=== PATIENT | male | born 1940 | race Caucasian/White ===

== ENCOUNTER 2016-12-11 09:11 | Emergency (ER) | payer OTHER ==
[2016-12-27] MEDS ORDERED: TOPROL XL25 MG PO (08:16)
[2016-12-27] MEDS ORDERED: PRAVACHOL40 MG PO (08:16)
[2016-12-27] MEDS ORDERED: ASPIRIN EC81 MG PO (08:16)
[2016-12-27] MEDS ORDERED: JANUVIA100 MG PO (08:16)
[2016-12-27] MEDS ORDERED: GLUCOPHAGE1000 MG PO (08:17)
[2016-12-27] MEDS ORDERED: VASOTEC10 MG PO (08:17)
[2016-12-27] MEDS ORDERED: GLUCOTROL XL5 MG PO (08:18)
== END 2016-12-11 14:03 | disposition critical access hospital (66) ==
LOC: ER 09:11
DX: K80.00 Calculus of gallbladder with acute cholecystitis without obstruction (principal); E11.9 Type 2 diabetes mellitus without complications; E78.5 Hyperlipidemia, unspecified; I10 Essential (primary) hypertension; Z79.899 Other long term (current) drug therapy; Z79.84 Long term (current) use of oral hypoglycemic drugs
CPT/HCPCS: 36415; 96361; 96365; 96375

== ENCOUNTER 2016-12-11 09:11 | Inpatient (IN) | payer OTHER ==
--- NOTE | 2016-12-12 12:29 | NUR ---
1100- PATIENT TAKEN TO OR PER HOSPITAL BED PER OR NURSING STAFF FOR CHOLECYSTECTOMY. NO S/S OF DISTRESS, NO COMPLAINTS. FAMILY AT BEDSIDE.
--- NOTE | 2016-12-12 20:16 | NUR ---
at 1545 Patient arrived to ICU from OR. Patient obtunded with no response per sternal rub. SPO2 77 on 2L per N/C. Patient changed to 10L per simple mask which increased SPO2 ot 96%. ABG drawn just prior to change to simple mask with results as listed. Dr. Hernandez here and aware. He wanted to attempt to try BiPaP but decision was made to intubate due to high CO2. At 1640 patient was intubated with 9.0 ETT/22-23 at teeth, AC 18, TV 550, Peep 5, FIO2 50%. Tube secured, CXR obtained. Labs obtained as well and as noted. AT 1645 patient began having hypotension 77/40. Dr. Hernandez informed. 500 cc bolus given as noted. Additional boluses given as noted. Minimal response. Levophed started at 10 mcg/min as noted. BP as noted. Albumin given as ordered per Dr. Pierre when she called. Patient continued to have hypotension with IVF infusing at high rate as well as Levophed continuing. Dr. Pierre also ordered consult with Dr. Chinchilla due to ectopy. Labs noted. Restraints initiated at 1800 due to patient moving around a bit. Morphine given as well for pain as noted. Discussed with Dr. Hernandez need for sedation. Diprivan drip ordered. Dr. Pierre said not to start until BP improved more and patient was moving more. Diprivan started at 1900. Dr. Pierre also wanted vent changes made based on ABG result changed to AC 18, TV 600, Peep 5, FIO2 50 % and to recheck ABG at 1930. In addition, Dr. hCinchilla her at 1830 assessing patient. He performed an ECHO and it is as noted. as noted.
--- NOTE | 2016-12-14 15:09 | NUR ---
1451-DR. GRIMM AND DR. JENKINS HERE TO SEE AND ASSESS PT AT THIS TIME. UPDATED ON PT CONDITION. PT DOING WELL SINCE EXTUBATED THIS AM. TO HAVE SPEECH EVALUATION IN AM AND PT AND OT TO CONSULT TODAY. DR. JENKINS D/C'D NG AT THIS TIME. N/O'S NOTED. WILL MONITOR
--- NOTE | 2016-12-14 17:42 | NUR ---
1605-DR. GRIMM NOTIFIED OF B N/O'S TO D/C INSULIN GTT AT THIS TIME AND INITIATE WT BASED S/S INSULIN AT LOWEST DOSE. PT STABLE WITH NO PROBLEMS NOTED AT THIS TIME
--- NOTE | 2016-12-19 08:58 | NUR ---
0840: PT TRANSPORTED TO [facility] VIA [facility]. SCHEDULING AT [facility].
--- NOTE | 2016-12-19 14:55 | NUR ---
1342: REPORT RECEIVED FROM BLAYNE PEPE AT [facility].
--- NOTE | 2016-12-19 14:55 | NUR ---
0945: REPORT GIVEN TO BLAYNE AT [facility].
--- NOTE | 2016-12-19 15:59 | NUR ---
1555: PT BACK ON FLOOR FROM [facility]. PT ALERT AND ORIENTED X3, VSS AND NO DISTRESS NOTED OR VERBALIZED. WILL CONTINUE TO MONITOR
--- NOTE | 2016-12-20 12:54 | NUR ---
1235: REPORT GIVEN TO JASMINE MENENDEZ RN ON [facility].
--- NOTE | 2016-12-20 13:04 | NUR ---
1300: PT TRANSPORTED TO [facility] VIA WHEELCHAIR. PT ALERT AND ORIENTED X3, VSS AND NO DISTRESS NOTED OR VERBALIZED.
--- NOTE | 2016-12-20 13:18 | NUR ---
1300: PT FROM ICU TO ROOM 311 VIA W/C ON ROOM AIR. PT STABLE. ASSISTED INTO RECLINER. AGREE WITH PREVIOUS NURSE ASSESSMENT. NO COMPLAINTS NOTED FROM PT.
[2016-12-27] MEDS ORDERED: TOPROL XL25 MG PO (08:16)
[2016-12-27] MEDS ORDERED: JANUVIA100 MG PO (08:16)
[2016-12-27] MEDS ORDERED: ASPIRIN EC81 MG PO (08:16)
[2016-12-27] MEDS ORDERED: PRAVACHOL40 MG PO (08:16)
[2016-12-27] MEDS ORDERED: GLUCOPHAGE1000 MG PO (08:17)
[2016-12-27] MEDS ORDERED: VASOTEC10 MG PO (08:17)
[2016-12-27] MEDS ORDERED: GLUCOTROL XL5 MG PO (08:18)
== END 2016-12-26 16:04 | disposition home health service (06) | DRG 417 ==
LOC: ER 09:11 → MED 14:04 → ICU 14:04 → MED 15:49 → ICU 12-12 16:04 → MED 12-20 13:05
PROVIDERS: ADMIT Internal Medicine
PROC: 0FT44ZZ Resection of Gallbladder, Percutaneous Endoscopic Approach (ICD-10-PCS; principal; 2016-12-12)
PROC: BF13YZZ Fluoroscopy of Gallbladder and Bile Ducts using Other Contrast (ICD-10-PCS; 2016-12-12)
PROC: 5A1945Z Respiratory Ventilation, 24-96 Consecutive Hours (ICD-10-PCS; 2016-12-12)
PROC: 0BH17EZ Insertion of Endotracheal Airway into Trachea, Via Natural or Artificial Opening (ICD-10-PCS; 2016-12-12)
PROC: 02HV33Z Insertion of Infusion Device into Superior Vena Cava, Percutaneous Approach (ICD-10-PCS; 2016-12-13)
PROC: B548ZZA Ultrasonography of Superior Vena Cava, Guidance (ICD-10-PCS; 2016-12-13)
DX: K80.00 Calculus of gallbladder with acute cholecystitis without obstruction (principal); J95.821 Acute postprocedural respiratory failure; T81.12XA Postprocedural septic shock, initial encounter; N17.0 Acute kidney failure with tubular necrosis; T81.4XXA Infection following a procedure, initial encounter; K91.873 Postprocedural seroma of a digestive system organ or structure following other procedure; D62 Acute posthemorrhagic anemia; B96.20 Unspecified Escherichia coli [E. coli] as the cause of diseases classified elsewhere; H35.30 Unspecified macular degeneration; Z79.84 Long term (current) use of oral hypoglycemic drugs; Z79.82 Long term (current) use of aspirin; Z79.899 Other long term (current) drug therapy; Z80.9 Family history of malignant neoplasm, unspecified; Z82.3 Family history of stroke; R33.9 Retention of urine, unspecified; E87.6 Hypokalemia; Z96.653 Presence of artificial knee joint, bilateral; Z87.891 Personal history of nicotine dependence; E78.5 Hyperlipidemia, unspecified; I11.9 Hypertensive heart disease without heart failure; E11.65 Type 2 diabetes mellitus with hyperglycemia; R19.7 Diarrhea, unspecified; E87.8 Other disorders of electrolyte and fluid balance, not elsewhere classified; N99.0 Postprocedural (acute) (chronic) kidney failure; E83.42 Hypomagnesemia
CPT/HCPCS: 36415; 92610; 93306; 94640; 94664; 97163-GP; 97167; C1751; C1894; J0696; J1644; J1940; J2704; J2765; J3480; J7030; P9047; Q9967